=== PATIENT | female | born 2005 | race Two or more races ===

== ENCOUNTER 2025-02-23 17:58 | Inpatient (IN) | payer OTHER ==
[~2025-02-23] VITALS: Ht 157.5 cm; Wt 2.7 kg
[2025-02-23 18:08] VITALS: BP 116/73
[2025-02-23] MEDS ORDERED: AMPICILLIN SODIUM 2,000 MG VIAL ONE (18:09)
[2025-02-23 18:13] VITALS: BP 116/73
[2025-02-23] MEDS ORDERED: PRENATAL TABLE1 EAC1 (18:39)
[2025-02-23] MEDS ORDERED: AMPICILLIN SODIUM 2,000 MG VIAL IV SCH (18:45)
[2025-02-23] MEDS ORDERED: RINGERS SOLUTION,LACTATED 1,000 ML IV SCH (18:45)
[2025-02-23 18:53] LABS: HEMATOCRIT 31.2 % (36.0-45.00); HEMOGLOBIN 10.3 g/dL (12.0-15.00); MEAN CELL VOLUME 75.6 fL (80.00-100.00); PLATELET COUNT 285 K/uL (150-450); RED BLOOD COUNT 4.13 M/uL (4.00-6.00); RED CELL DISTRIBUTION WIDTH 16.9 % (11.5-14.5); URINE APPEARANCE Cloudy; URINE BILIRRUBIN Negative (NEGATIVE); URINE BLOOD Negative; URINE COLOR Dark Yellow; URINE GLUCOSE Negative (NEGATIVE); URINE KETONE Trace (NEGATIVE); URINE LEUKOCYTE Trace; URINE NITRATE Negative; URINE PROTEIN 30 (NEGATIVE)
[2025-02-23 18:57] LABS: URINE BACTERIA 5887.4 uL (0.0-1933); URINE EPITHELIAL CELLS 200.2 uL (0.0-38.8); URINE RBC 4.8 uL (0.0-20.8); URINE WBC 97.8 uL (0.0-23.2)
[2025-02-23 19:05] LABS: INR 0.97; PARTIAL THROMBOPLASTIN TIME 25.8 SECONDS (22.0-34.0); PROTHROMBIN TIME 10.6 SECONDS (9.0-11.5)
[2025-02-23 19:20] LABS: URINE CAST 0.29 uL (0.0-1.40); URINE YEAST FEW /hpf
[2025-02-23] MEDS ORDERED: MISOPROSTOL 25 MCG TABLET ONE (20:29)
[2025-02-23] MEDS ORDERED: MISOPROSTOL 25 MCG TABLET VAG STA (20:44)
[2025-02-23] MEDS ORDERED: MORPHINE SULFATE 4 MG/ML VIAL IV PRN (21:00)
[2025-02-23 23:15] VITALS: BP 137/86
[2025-02-24 04:28] VITALS: BP 116/71
[2025-02-24 07:18] VITALS: BP 112/62
[2025-02-24 11:25] VITALS: BP 122/75
[2025-02-24] MEDS ORDERED: OXYTOCIN 20 UNITS/500ML RL PIGGYBAG IV SCH (12:30)
[2025-02-24 14:29] VITALS: BP 111/64
[2025-02-24] MEDS ORDERED: MORPHINE SULFATE 4 MG/ML CARTRIDGE IV ONE (14:45)
[2025-02-24 15:13] VITALS: BP 127/82
[2025-02-24] MEDS ORDERED: ERYTHROMYCIN BASE OPHT 1GM EACH TUBE OP ONE (17:45)
[2025-02-24] MEDS ORDERED: OXYTOCIN 10 UNITS/ML VIAL ONE ×2 (17:45→21:46)
[2025-02-24] MEDS ORDERED: CHLORHEXIDINE GLUCONATE 120 ML BOTTLE TOP ONE (17:45)
[2025-02-24] MEDS ORDERED: KETOROLAC TROMETHAMINE 60 MG VIAL IM STA (19:49)
[2025-02-24] MEDS ORDERED: RINGERS SOLUTION,LACTATED 1,000 ML IV SCH (20:00)
[2025-02-24] MEDS ORDERED: CHLORHEXIDINE GLUCONATE 120 ML BOTTLE TOP SCH (20:00)
[2025-02-24] MEDS ORDERED: MORPHINE SULFATE 4 MG/ML CARTRIDGE IV PRN (20:00)
[2025-02-24] MEDS ORDERED: OXYTOCIN 1,000 ML IV SCH (20:00)
[2025-02-24] MEDS ORDERED: KETOROLAC TROMETHAMINE 60 MG VIAL IM ONE (21:46)
[2025-02-24 22:38] VITALS: BP 119/75
[2025-02-24 23:18] LABS: HEMATOCRIT 32.3 % (36.0-45.00); HEMOGLOBIN 10.3 g/dL (12.0-15.00); MEAN CELL VOLUME 76.2 fL (80.00-100.00); MEAN CORPUSCULAR HEMOGLOBIN 24.2 pg (27.00-32.0); MEAN CORPUSCULAR HGB CONC 31.8 g/dl (32.0-36.0); PLATELET COUNT 249 K/uL (150-450); RED BLOOD COUNT 4.24 M/uL (4.00-6.00)
[2025-02-25] VITALS: BP 117/77; O2SAT 96
[2025-02-25] MEDS ORDERED: ACETAMINOPHEN WITH CODEINE 1 UDTAB TABLET PO PRN (09:00)
[2025-02-25 16:31] VITALS: BP 117/84; O2SAT 100
[2025-02-26] VITALS: BP 117/70
[2025-02-26 08:51] VITALS: BP 100/70
[2025-02-26 16:00] VITALS: BP 93/58
[2025-02-27] VITALS: BP 115/80
[2025-02-27 09:06] VITALS: BP 118/76
== END 2025-02-27 14:31 | disposition home or self-care (01) | DRG 788 ==
LOC: LDR 17:58 → O/R 02-24 18:57 → OB/GYN 02-24 20:08
PROVIDERS: ADMIT Obstetrics & Gynecology; ATTEND Obstetrics & Gynecology
PROC: 3E0P7VZ Introduction of Hormone into Female Reproductive, Via Natural or Artificial Opening (ICD-10-PCS; 2025-02-23)
PROC: 4A1HXCZ Monitoring of Products of Conception, Cardiac Rate, External Approach (ICD-10-PCS; 2025-02-23)
PROC: 3E033VJ Introduction of Other Hormone into Peripheral Vein, Percutaneous Approach (ICD-10-PCS; 2025-02-24)
PROC: 10D00Z1 Extraction of Products of Conception, Low, Open Approach (ICD-10-PCS; principal; 2025-02-24 17:00)
DX: O36.5930 Maternal care for other known or suspected poor fetal growth, third trimester, not applicable or unspecified (principal); Z3A.38 38 weeks gestation of pregnancy; Z37.0 Single live birth